=== PATIENT | male | born 1970 | race Caucasian/White ===

== ENCOUNTER 2021-01-23 13:26 | Outpatient (CLI) | payer OTHER, SELFPAY | END 2021-01-23 13:27 | disposition home or self-care (01) | LOC: WOUND 13:41 | PROVIDERS: PCP Emergency Medicine Emergency Medical Services; Visit Provider Emergency Medicine | DX: L89.893 Pressure ulcer of other site, stage 3 (principal); F17.210 Nicotine dependence, cigarettes, uncomplicated; I10 Essential (primary) hypertension | CPT/HCPCS: 11042; 87070; 87077; 87176; 87186; 87205; G0463 ==

== ENCOUNTER 2021-01-30 13:48 | Outpatient (CLI) | payer OTHER, SELFPAY | END 2021-01-30 13:49 | disposition home or self-care (01) | LOC: WOUND 13:49 | PROVIDERS: PCP Emergency Medicine Emergency Medical Services; Visit Provider Nurse Practitioner Family | DX: Z09 Encounter for follow-up examination after completed treatment for conditions other than malignant neoplasm (principal) | CPT/HCPCS: 99212; A6212 ==

== ENCOUNTER 2021-03-11 15:07 | Outpatient (CLI) | payer OTHER, SELFPAY ==
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
== END 2021-03-11 15:08 | disposition home or self-care (01) ==
LOC: RAD 15:08
PROVIDERS: PCP Emergency Medicine Emergency Medical Services; Visit Provider Emergency Medicine
DX: L89.893 Pressure ulcer of other site, stage 3 (principal); I87.2 Venous insufficiency (chronic) (peripheral)
CPT/HCPCS: 93971

== ENCOUNTER → 2021-06-09 08:07 | Outpatient (BNVA) | payer OTHER, SELFPAY | PROVIDERS: PCP Emergency Medicine Emergency Medical Services; Referring Provider Emergency Medicine Emergency Medical Services; Visit Provider Specialist | DX: M14.6 Charcot's joint (principal) | CPT/HCPCS: 73502 ==

== ENCOUNTER → 2021-07-10 14:09 | Outpatient (BNVA) | payer OTHER, SELFPAY | PROVIDERS: PCP Family Medicine; Referring Provider Specialist; Visit Provider Anesthesiology Pain Medicine | DX: M14.6 Charcot's joint (principal); M54.16 Radiculopathy, lumbar region; M87.052 Idiopathic aseptic necrosis of left femur; F17.210 Nicotine dependence, cigarettes, uncomplicated | CPT/HCPCS: 72110; 99204 ==

== ENCOUNTER → 2021-07-15 14:33 | Outpatient (BNVA) | payer OTHER, SELFPAY | PROVIDERS: PCP Family Medicine; Visit Provider Anesthesiology Pain Medicine | DX: M16.12 Unilateral primary osteoarthritis, left hip (principal); M54.9 Dorsalgia, unspecified; F17.210 Nicotine dependence, cigarettes, uncomplicated | CPT/HCPCS: 20610; 77002; J1030; J3490 ==

== ENCOUNTER → 2021-07-29 09:47 | Outpatient (BNVA) | payer OTHER, SELFPAY | PROVIDERS: PCP Family Medicine; Visit Provider Anesthesiology Pain Medicine | DX: M87.052 Idiopathic aseptic necrosis of left femur (principal); M14.6 Charcot's joint; F17.210 Nicotine dependence, cigarettes, uncomplicated | CPT/HCPCS: 99214 ==

== ENCOUNTER → 2021-07-31 10:01 | Outpatient (BNVA) | payer OTHER, SELFPAY | PROVIDERS: PCP Family Medicine; Referring Provider Specialist; Visit Provider Specialist | DX: G62.89 Other specified polyneuropathies (principal) | CPT/HCPCS: 95911 ==

== ENCOUNTER → 2021-09-02 12:55 | Outpatient (BNVA) | payer OTHER, SELFPAY | PROVIDERS: PCP Family Medicine; Visit Provider Anesthesiology Pain Medicine | DX: M16.12 Unilateral primary osteoarthritis, left hip (principal); F17.210 Nicotine dependence, cigarettes, uncomplicated | CPT/HCPCS: 20610; 77002; J1030; J3490 ==

== ENCOUNTER 2021-10-02 12:45 | Outpatient (CLI) | payer OTHER, SELFPAY ==
--- NOTE | 2021-10-02 13:58 | XRR_ITS ---
PROCEDURE INFORMATION: Exam: XR Right Hip Exam date and time: 10/02/2021 2:08 PM Age: 51 years old Clinical indication: Hip pain; Right hip; Additional info: M16.0 - bilateral primary osteoarthritis of hip TECHNIQUE: Imaging protocol: Radiologic exam of the Right hip. Views: 4 or more views of hip with pelvis when performed. COMPARISON: DX Pelvis AP 1 or 2 views* [id number] 01/20/2021 2:56 PM FINDINGS: Bones/joints: Incidentally noted is decreased size and remodeling in the left hip this finding is decreased in volume since prior examination . Soft tissues: Unremarkable. XR/XR hip RT 4V wo/w pel [id number] IMPRESSION: 1. Negative for acute right hip bony abnormality. 2. Chronic deformity left hip
== END 2021-10-02 12:46 | disposition home or self-care (01) ==
LOC: PMOACUTE 13:56
PROVIDERS: PCP Family Medicine; Visit Provider Anesthesiology Pain Medicine
DX: M14.6 Charcot's joint (principal); M87.052 Idiopathic aseptic necrosis of left femur; M54.9 Dorsalgia, unspecified; F17.210 Nicotine dependence, cigarettes, uncomplicated
CPT/HCPCS: 73503; 99214

== ENCOUNTER → 2021-10-30 13:57 | Outpatient (BNVA) | payer OTHER, SELFPAY | PROVIDERS: PCP Family Medicine; Visit Provider Anesthesiology Pain Medicine | DX: F17.210 Nicotine dependence, cigarettes, uncomplicated (principal); M14.6 Charcot's joint; M87.052 Idiopathic aseptic necrosis of left femur; M54.9 Dorsalgia, unspecified | CPT/HCPCS: 99213; 99214 ==

== ENCOUNTER → 2021-11-06 14:09 | Outpatient (BNVA) | payer OTHER, SELFPAY | PROVIDERS: PCP Family Medicine; Visit Provider Anesthesiology Pain Medicine | DX: M16.11 Unilateral primary osteoarthritis, right hip (principal); F17.210 Nicotine dependence, cigarettes, uncomplicated | CPT/HCPCS: 20610; 77002; J1030; J3490 ==

== ENCOUNTER → 2021-11-20 10:34 | Outpatient (BNVA) | payer OTHER, SELFPAY | PROVIDERS: PCP Family Medicine; Visit Provider Anesthesiology Pain Medicine | DX: M87.052 Idiopathic aseptic necrosis of left femur (principal); M14.6 Charcot's joint; M16.12 Unilateral primary osteoarthritis, left hip; F17.210 Nicotine dependence, cigarettes, uncomplicated | CPT/HCPCS: 99213 ==

== ENCOUNTER 2022-03-12 20:34 | Emergency (ER) | payer OTHER, SELFPAY ==
[2022-03-12 21:01] VITALS: BP 158/79; PULSE 88; RESP 16; TEMP 36.4; O2SAT 96; BMI 39.5
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
[2022-03-12] MEDS: ketorolac 60 mg/2 mL INJ IM (22:24)
[2022-03-12 23:01] VITALS: PULSE 84; RESP 16; O2SAT 94
== END 2022-03-12 23:02 | disposition home or self-care (01) ==
PROVIDERS: Emergency Provider Physician Assistant; PCP Family Medicine
DX: S60.222A Contusion of left hand, initial encounter (principal); F17.210 Nicotine dependence, cigarettes, uncomplicated; V86.69XA Passenger of other special all-terrain or other off-road motor vehicle injured in nontraffic accident, initial encounter
CPT/HCPCS: 73110; 73130; 96372; 99284; J1885

== ENCOUNTER 2022-08-01 12:51 | Emergency (ER) | payer OTHER, SELFPAY ==
--- NOTE | 2022-08-01 12:55 | XRR_ITS ---
PROCEDURE INFORMATION: Exam: XR Right Hip Exam date and time: 08/01/2022 1:14 PM Age: 51 years old Clinical indication: Hip pain; Right hip; Patient HX: Pain in hip with knee swelling; Additional info: Injury TECHNIQUE: Imaging protocol: Radiologic exam of the right hip. Views: 2 or 3 views hip with pelvis when performed. COMPARISON: CR XR hip RT 4V wo/w pel [id number] 10/02/2021 2:08 PM FINDINGS: Bones/joints: There is progressive deformity of the right femoral head which is more flattened on the current study. There are progressive degenerative changes of the right hip joint. Interval changes is suggestive of rapidly destructive arthritis of uncertain etiology. Changes are similar to findings in the left hip joint. There is no fracture or dislocation. Soft tissues: Unremarkable. XR/XR hip RT 2-3V wo/w pel* [id number] IMPRESSION: Destructive arthropathy right hip joint significantly progressed from previous exam similar to findings within the left hip joint.
[2022-08-01 13:00] VITALS: BP 149/87; PULSE 67; RESP 17; TEMP 36.8; O2SAT 93; BMI 31.6
--- NOTE | 2022-08-01 13:39 | USR_ITS ---
PROCEDURE INFORMATION: Exam: US Duplex Right Lower Extremity Veins, Limited Exam date and time: 08/01/2022 1:57 PM Age: 51 years old Clinical indication: Edema, localized; Lower extremity, right; Additional info: Rle edema TECHNIQUE: Imaging protocol: Real-time duplex ultrasound of the right extremity with 2-D jones scale, color Doppler flow and spectral waveform analysis including responses to compression and other maneuvers (when performed) with image documentation. Limited exam was focused on the right lower extremity veins. COMPARISON: No relevant prior studies available. FINDINGS: Right deep veins: Unremarkable. The common femoral, femoral, proximal profunda femoral and popliteal veins are patent without thrombus. Normal Doppler waveforms. Normal compressibility and/or augmentation response. Right superficial veins: Unremarkable. Saphenofemoral junction is patent without thrombus. Soft tissues: Unremarkable. US/[place] [id number] IMPRESSION: No evidence of deep vein thrombosis.
--- NOTE | 2022-08-01 13:57 | ED_ITS ---
HPI - Extremity Problem General: Chief complaint: Extremity Problem,Nontraumatic Stated complaint: right hip pain Time Seen by Provider: 08/01/22 13:03 History of Present Illness: Patient is a 51-year-old man that presents to the emergency department with complaints of right hip pain. Right hip pain is chronic in nature. Has undergone previous injections which has helped but has not recently been seen by his pain management provider or orthopedic surgeon. Patient has a history of bilateral hip avascular necrosis. He reports that he has also had right lower extremity swelling that he has been concerned about. The edema in the right lower extremity extends from calf through his thigh. Denies any actual calf pain. 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 Associated symptoms: Deny chest pain, fever(s) or rash Review of Systems General: Reports: 10 or more systems reviewed and unremarkable except in HPI and below Const: Denies: fever(s), chills, change in appetite, change in weight, fatigue or malaise Eyes: Denies: change in vision, eye discomfort, eye discharge or eye redness ENMT: Denies: throat pain, enlarged tonsils, odynophagia, hoarseness, ear or mastoid pain, ear discharge, change in hearing, tinnitus, nasal discharge, nasal congestion, post nasal drip or sinus pain Card: Denies: chest pain, palpitations, irregular heart rhythm, edema, dyspnea on exertion, orthopnea or leg pain with exertion Resp: Denies: dyspnea, productive cough, non-productive cough, wheezing, stridor or chest congestion GI: Denies: abdominal pain, nausea, vomiting, dysphagia, diarrhea, constipation, bloating, GI cramping or hematochezia : Denies: flank pain, dysuria, urinary frequency, urinary urgency, urinary hesitancy, oliguria or hematuria Musc: Denies: neck pain, back pain, extremity pain, joint pain, joint swelling, joint redness, joint warmth or muscle weakness Skin/Breast: Denies: rash, pruritus, erythema, photosensitivity or new lesions Neuro: Denies: headache(s), numbness in extremities, weakness in extremities, sensory changes, lack of coordination, difficulty walking, frequent falls, dizziness, confusion, Slurred speech present, difficulty communicating thoughts, seizure-like activity or involuntary movements Endo: Denies: polyuria, polydipsia or tired all the time Jarred/Lymph: Denies: easy bruising or easy bleeding PFSH ED PFSH: Medical History Bilateral foot-drop Venous insufficiency Family History Mother Hypertension Denies family history of Diabetes CAD (coronary artery disease) Cancer Stroke Social History Smoking and tobacco status: current every day smoker cigarettes Packs smoked per day: 1 Alcohol intake: current Alcohol intake frequency: holidays/special occasions only Alcohol type: beer Substance/Drug Use: former Date of last use: QUIT 2013 Physical Exam Narrative: EXAM NARRATIVE: Alert and oriented x3 Afebrile and vital signs are stable [place] warm and dry Nonlabored breathing Symmetrical chest rise and fall Obesity bilateral lower extremities: Patient has bilateral AFOs. RHONDA hose-below the knee Swelling is noted to the right lower extremity. Patient denies calf pain and is nontender to palpation Patient does have knee swelling but is still able to range of motion his knee There is no erythema or warmth to the knee Course Vital Signs: Vital signs: Vital Signs Temperature 98.3 F 08/01/22 13:00 Pulse Rate 67 08/01/22 13:00 Respiratory Rate 17 08/01/22 13:00 Blood Pressure 140/71 08/01/22 14:17 Pulse Oximetry 95 08/01/22 14:17 Oxygen Delivery Me thod Room Air 08/01/22 14:17 MDM - Extremity (Nontraumatic) Medical Decision Making Patient underwent XR imaging of the right hip/pelvis. Imaging reveals evolution of right hip avascular necrosis. Patient is also concerned of right lower extremity edema. I have obtained a ultrasound venous duplex of the right lower extremity to assess for DVT negative for DVT. Patient was treated with Toradol and reports that he has had some improvement in his symptoms although when ambulatory his pain is pretty significant. Patient does already have established orthopedic and pain management cares and he has a primary care provider Prior to departure patient has requested numerous orders including a wheelchair, bedside commode, wound care management, etc. I have consulted case management for mobility needs and for wound care. Patient is also requesting RHONDA hose. I have sent a prescription for RHONDA hose and Toradol. Patient is to follow-up with [facility] provider, [facility], [facility] management, orthopedic surgeon Lab Data Radiology Impressions Hip/Pelvis X-Ray 08/01/22 12:55 IMPRESSION: Destructive arthropathy right hip joint significantly progressed from previous exam similar to findings within the left hip joint. Venous Duplex 08/01/22 13:39 IMPRESSION: No evidence of deep vein thrombosis. Discharge Plan Discharge Patient Disposition: Home Clinical Impression: Avascular necrosis, Edema of lower extremity Condition: Stable Prescriptions: New ketorolac 10 mg tablet 10 mg PO TID PRN (Reason: pain) 5 Days Qty: 15 0RF No Action losartan 50 mg tablet 150 mg PO DAILY amlodipine 5 mg tablet 5 mg PO DAILY buprenorphine-naloxone 2-0.5 mg tablet, sublingual 2 tab sublingual BID omega-3 fatty acids [Fish Oil Concentrate] 1,000 mg capsule 1,000 mg PO BID metoprolol succinate 100 mg tablet extended release 24 hr 150 mg PO DAILY pregabalin 75 mg capsule 75 mg PO BID hydrochlorothiazide 25 mg tablet 25 mg PO DAILY methylprednisolone acetate [Depo-Medrol] 40 mg/mL suspension 40 mg intra-articular ONCE Qty: 1 0RF bupivacaine (PF) 0.25 % (2.5 mg/mL) solution 5 ml intra-articular ONCE Qty: 1 0RF methylprednisolone acetate [Depo-Medrol] 40 mg/mL suspension 40 mg Infiltration ONCE Qty: 1 0RF bupivacaine (PF) 0.25 % (2.5 mg/mL) solution 2.5 mg intra-articular ONCE Qty: 1 0RF ibuprofen 800 mg tablet 800 mg PO Q8H PRN (Reason: pain) Qty: 20 0RF Discharge Orders: Discharge ED (Routine); Ordered 08/01/22 Ordered By: [facility]ell [facility] Referrals: Es Torres MD [Primary Care Provider] - Discharge Diet: Advance as tolerated Discharge Activity: Resume usual activity Patient Instructions: Pain Management Activity Restrictions/Additional Instructions: Please follow-up with your primary care, orthopedic surgeon, painter assistant. I have sent consults for comp field case manager to assist with setting up assistance with home health care needs. Unfortunately I am unable to provide you with RHONDA hose/compression stockings. I have sent to prescription for ketorolac which is like ibuprofen so do not take additional ibuprofen or Advil while taking this. Please return to the emergency department for new concerning or worsening symptom Coding Level of Care Code ED School Traffic Guard for Zelalem Sumner
[2022-08-01] MEDS: ketorolac 60 mg/2 mL INJ IM (14:11)
[2022-08-01 14:17] VITALS: BP 140/71; O2SAT 95
[2022-08-01 15:32] VITALS: BP 138/71; RESP 16; O2SAT 98
--- NOTE | 2022-08-02 04:42 | DCPLANNER ---
nurse care manager had message to schedule a follow up appointment for patient with Wound Care. nurse care manager sent patients information to the front office staff at wound care. Patients information will be printed and reviewed. Clinic will call patient with appointment information.
--- NOTE | 2022-08-02 09:08 | DCPLANNER ---
onsite case manager had message to help patient with home health needs, wheelchair, shower chair, bedside commode. onsite case manager spoke with patient and informed the patient that with [facility], patient would need to go thru his primary care physician, and the [facility]. onsite case manager did tell patient that shelter case manager would send patients records to the [facility], so that they would know what the ER physician wanted ordered for patient. Patient stated that he would call his PACT team to get the items that he wanted ordered. onsite case manager sent patients information to June, with [facility].
== END 2022-08-01 15:35 | disposition home or self-care (01) ==
PROVIDERS: Emergency Provider Nurse Practitioner; PCP Family Medicine
DX: M87.9 Osteonecrosis, unspecified (principal); R60.0 Localized edema
CPT/HCPCS: 73502; 93971; 96372; 99284; J1885

== ENCOUNTER 2022-08-17 13:11 | Emergency (ER) | payer OTHER, SELFPAY ==
[2022-08-17 13:26] VITALS: BP 149/78; PULSE 73; RESP 14; TEMP 36.6; O2SAT 96; BMI 39.5
--- NOTE | 2022-08-17 16:29 | W.ED.EXTPRO ---
HPI - Extremity Problem General: Chief complaint: Extremity Injury, Lower Stated complaint: leg swelling Time Seen by Provider: 08/17/22 16:05 Source: patient Mode of arrival: wheelchair Limitations: no limitations History of Present Illness: This 51-year-old male with a history of bilateral avascular necrosis of the hips presents to the ER with right hip pain. Pain is chronic and he sees the pain clinic for it. He has had injections to the hip which provides temporary relief. Review of records shows that patient was here on 08/01/2022 for the same pain. He had associated swelling in the right leg. Venous Doppler ultrasound done at that time was negative for DVT. Patient was essentially treated for pain and discharged home. She still complains of swelling to that right lower extremity and this time is wanting to make sure that there is no infection there. He has no fever, cough, shortness of breath or any signs of systemic illness. He came in in a wheelchair. Associated symptoms: Deny chest pain Review of Systems Const: Denies: chills, body aches or change in appetite Eyes: Denies: change in vision or eye discharge ENMT: Denies: throat pain or dental pain Card: Denies: chest pain or lightheadedness GI: Denies: diarrhea : Denies: dysuria Musc: Reports: neck pain, back pain, extremity swelling (Both legs, right worse than left.), joint pain (Bilateral hip, right worse than left.) and limited range of motion (Right hip, due to pain.) Neuro: Denies: headache(s) or weakness in extremities Psych: Denies: depression Jarred/Lymph: Denies: easy bruising All/Imm: Denies: urticaria, tongue swelling or facial swelling PFSH ED PFSH: Medical History Bilateral foot-drop Venous insufficiency Family History Mother Hypertension Denies family history of Diabetes CAD (coronary artery disease) Cancer Stroke Social History Smoking and tobacco status: current every day smoker cigarettes Packs smoked per day: 1 Alcohol intake: current Alcohol intake frequency: holidays/special occasions only Alcohol type: beer Substance/Drug Use: former Date of last use: QUIT 2013 Physical Exam Const: COMMON NORMALS: no acute distress, patient oriented x3, no limitations and alert NUTRITIONAL APPEARANCE: overweight (Obese) HENMT: COMMON NORMALS: normocephalic HEAD & SCALP: normocephalic Eye: COMMON NORMALS: EOMs intact bilaterally Neck/C-Spine: COMMON NORMALS: full ROM and supple Chest: COMMONS NORMALS: normal inspection of the chest Resp: COMMON NORMALS: normal respiratory effort, No retractions, No use of accessory muscles and clear to auscultation bilaterally AUSCULTATION: clear to auscultation bilaterally Cardio: COMMON NORMALS: regular rate, regular rhythm and No murmurs present (Cardio) RATE: regular rate RHYTHM: regular rhythm GI: COMMON NORMALS: Normal to inspection, nondistended, normoactive bowel sounds present and non-tender : COMMON NORMALS: Yes no CVA tenderness BLADDER/KIDNEY EXAM: Yes no CVA tenderness Back/Pelvis: COMMON NORMALS: no CVA tenderness and no thoracic nor lumbar tenderness Extremity: GENERAL: Yes normal exam except as noted OTHER: Limitation of right hip movement due to pain. There is bilateral pitting pedal edema, right worse than left. No distal neurovascular deficit. Homans' sign is negative in the right lower extremity. Neuro: COMMON NORMALS: patient oriented x3 and no focal motor deficits SENSORIUM/ORIENTATION: Yes alert Psych: COMMON NORMALS: mental status grossly normal and cooperative Course Vital Signs: Vital signs: Vital Signs Temperature 97.9 F 08/17/22 13:26 Pulse Rate 63 08/17/22 17:43 Respiratory Rate 16 08/17/22 17:43 Blood Pressure 137/97 08/17/22 17:43 Pulse Oximetry 99 08/17/22 17:43 Oxygen Delivery Me thod Room Air 08/17/22 17:43 MDM - Extremity (Nontraumatic) Medical Decision Making Medical decision making: History as above. There is nothing to suggest that patient has infection in the right lower extremity. There is no erythema or warmth in that leg. White count is normal with no left shift. Patient is afebrile and exhibits no signs of systemic illness. Venous Doppler ultrasound done in that right lower extremity during his last visit was negative for DVT. There is nothing to suggest DVT at this time. I believe that the edema is dependent since patient mostly utilizes wheelchair these days. He was advised to elevate the leg is much as possible. Also to help, he will be given a short course of Lasix. He will be evaluated by his primary care physician in a week to determine if he needs to continue with the Lasix or not. Reasons to return were discussed. Patient verbalized understanding and agrees with the plan. Lab Data 08/17/22 17:30 08/17/22 17:30 Laboratory Results WBC 7.7 10^3/uL (4.0-10.0) 08/17/22 17: RBC 4.12 10^6/uL (4.1-5.3) 08/17/22 17: Hgb 11.6 g/dL (11.7-16.6) L 08/17/22 17: Hct 37.4 % (42.0-52.0) L 08/17/22 17: MCV 90.8 fl (80-94) 08/17/22 17: MCH 28.2 pg (28.0-34.0) 08/17/22 17: MCHC 31.0 g/dL (30.0-36.0) 08/17/22 17: RDW 14.9 % (12.1-15.1) 08/17/22 17: Plt Count 257 10^3/cmm (130-400) 08/17/22 17: MPV 10.7 fL (7.4-10.4) H 08/17/22 17:30 Neut % (Auto) 57.0 % 08/17/22 17:30 Lymph % (Auto) 28.6 % 08/17/22 17:30 [place] % (Auto) 8.5 % 08/17/22 17:30 Eos % (Auto) 5.3 % 08/17/22 17:30 Baso % (Auto) 0.5 % 08/17/22 17:30 Neut # (Auto) 4.37 10^3/uL (1.8-7.7) 08/17/22 17:30 Lymph # (Auto) 2.2 10^3/uL (0.8-4.8) 08/17/22 17:30 [place] # (Auto) 0.7 10^3/uL (0.2-0.9) 08/17/22 17:30 Eos # (Auto) 0.4 10^3/uL (0.0-0.8) 08/17/22 17:30 Baso # (Auto) 0.0 10^3/uL (0.0-0.1) 08/17/22 17:30 Nucleated RBC % (auto) 0 % 08/17/22 17:30 Nucleated RBCs # 0.0 /100WBC 08/17/22 17:30 Sodium 140 mmol/L (136-145) 08/17/22 17:30 Potassium 3.5 mmol/L (3.5-5.1) 08/17/22 17:30 Chloride 102 mmol/L (98-107) 08/17/22 17:30 Carbon Dioxide 27 mmol/L (22-29) 08/17/22 17:30 Anion Gap 14.5 (5-19) 08/17/22 17:30 BUN 12 mg/dL (6-20) 08/17/22 17:30 Creatinine 0.8 mg/dL (0.7-1.2) 08/17/22 17:30 GFR Calculation 101.5 mL/min (90-130) 08/17/22 17:30 Glucose 80 mg/dL (65-115) 08/17/22 17:30 Calculated Osmolality 289 mOsm/kg (285-295) 08/17/22 17:30 Calcium 8.8 mg/dL (8.5-10.5) 08/17/22 17:30 Total Bilirubin 0.2 mg/dL (0.15-1.2) 08/17/22 17:30 AST 15 U/L (0-40) 08/17/22 17:30 ALT 12 U/L (0-41) 08/17/22 17:30 Alkaline Phosphatase 65 U/L (40-130) 08/17/22 17:30 Total Protein 7.7 g/dL (6.6-8.7) 08/17/22 17:30 Albumin 3.7 g/dL (3.5-5.2) 08/17/22 17:30 Globulin 4.0 g/dL (1.3-4.6) 08/17/22 17:30 Discharge Plan Discharge Patient Disposition: Home Clinical Impression: Chronic hip pain, bilateral, Edema of right lower extremity Condition: Stable Prescriptions: New Lasix 20 mg tablet 20 mg PO DAILY Qty: 7 0RF No Action losartan 50 mg tablet 150 mg PO DAILY amlodipine 5 mg tablet 5 mg PO DAILY buprenorphine-naloxone 2-0.5 mg tablet, sublingual 2 tab sublingual BID omega-3 fatty acids [Fish Oil Concentrate] 1,000 mg capsule 1,000 mg PO BID metoprolol succinate 100 mg tablet extended release 24 hr 150 mg PO DAILY pregabalin 75 mg capsule 75 mg PO BID hydrochlorothiazide 25 mg tablet 25 mg PO DAILY methylprednisolone acetate [Depo-Medrol] 40 mg/mL suspension 40 mg intra-articular ONCE Qty: 1 0RF bupivacaine (PF) 0.25 % (2.5 mg/mL) solution 5 ml intra-articular ONCE Qty: 1 0RF methylprednisolone acetate [Depo-Medrol] 40 mg/mL suspension 40 mg Infiltration ONCE Qty: 1 0RF bupivacaine (PF) 0.25 % (2.5 mg/mL) solution 2.5 mg intra-articular ONCE Qty: 1 0RF ibuprofen 800 mg tablet 800 mg PO Q8H PRN (Reason: pain) Qty: 20 0RF Discharge Orders: Discharge ED (Routine); Ordered 08/17/22 Ordered By: Anabell Porras Referrals: Es Torres MD [Primary Care Provider] - Discharge Diet: Usual diet Discharge Activity: Resume usual activity Patient Instructions: Opioid Safety, Pain Management Activity Restrictions/Additional Instructions: There is no sign of infection in your right leg. Take Lasix as prescribed. Elevate your lower extremities as much as you can. Follow-up with your primary care physician in a week for reevaluation. Follow-up with the pain clinic as scheduled. Return with new or worsening symptoms. Coding Level of Care Code ED Manager Environmental for Zelalem Sumner
[2022-08-17 17:41] VITALS: BP 180/94; PULSE 70; RESP 15; O2SAT 94
[2022-08-17 17:41] LABS: Basophils % 0.5 %; Eosinophils # 0.4 10^3/uL (0.0-0.8); Eosinophils % 5.3 %; Hematocrit 37.4 % (42.0-52.0); Hemoglobin 11.6 g/dL (11.7-16.6); Lymphocytes # 2.2 10^3/uL (0.8-4.8); Lymphocytes % 28.6 %; Mean Corpuscular Hemoglobin 28.2 pg (28.0-34.0); Mean Corpuscular Volume 90.8 fl (80-94); Mean Platelet Volume 10.7 fL (7.4-10.4); Monocytes # 0.7 10^3/uL (0.2-0.9); Monocytes % 8.5 %; Neutrophils # 4.37 10^3/uL (1.8-7.7); Nucleated Red Blood Cells % 0 %; Platelet Count 257 10^3/cmm (130-400); Red Blood Count 4.12 10^6/uL (4.1-5.3); Red Cell Distribution Width 14.9 % (12.1-15.1); White Blood Count 7.7 10^3/uL (4.0-10.0)
[2022-08-17 17:43] VITALS: BP 137/97; PULSE 63; RESP 16; O2SAT 99
[2022-08-17 18:02] LABS: Alanine Aminotransferase 12 U/L (0-41); Albumin Level 3.7 g/dL (3.5-5.2); Alkaline Phosphatase 65 U/L (40-130); Anion Gap 14.5 (5-19); Aspartate Amino Transferase 15 U/L (0-40); Blood Urea Nitrogen 12 mg/dL (6-20); Calcium 8.8 mg/dL (8.5-10.5); Carbon Dioxide 27 mmol/L (22-29); Chloride 102 mmol/L (98-107); Glomerular Filtration Rate 101.5 mL/min (90-130); Glucose 80 mg/dL (65-115); Osmolality Calculated 289 mOsm/kg (285-295); Potassium 3.5 mmol/L (3.5-5.1); Sodium 140 mmol/L (136-145); Total Bilirubin 0.2 mg/dL (0.15-1.2); Total Protein 7.7 g/dL (6.6-8.7)
== END 2022-08-17 19:15 | disposition home or self-care (01) ==
PROVIDERS: Emergency Provider Family Medicine; PCP Family Medicine
DX: M25.551 Pain in right hip (principal); M25.552 Pain in left hip; G89.29 Other chronic pain; M79.89 Other specified soft tissue disorders
CPT/HCPCS: 36415; 80053; 85025; 99283

== ENCOUNTER → 2022-08-25 13:14 | Outpatient (BNVA) | payer OTHER, SELFPAY | PROVIDERS: PCP Family Medicine; Visit Provider Nurse Practitioner Family | DX: I96 Gangrene, not elsewhere classified (principal); L97.822 Non-pressure chronic ulcer of other part of left lower leg with fat layer exposed; L97.512 Non-pressure chronic ulcer of other part of right foot with fat layer exposed; L97.522 Non-pressure chronic ulcer of other part of left foot with fat layer exposed | CPT/HCPCS: 97597; 99213 ==

== ENCOUNTER → 2022-09-01 12:51 | Outpatient (BNVA) | payer OTHER, SELFPAY | PROVIDERS: PCP Family Medicine; Visit Provider Nurse Practitioner Family | DX: I96 Gangrene, not elsewhere classified (principal); L97.522 Non-pressure chronic ulcer of other part of left foot with fat layer exposed; L97.822 Non-pressure chronic ulcer of other part of left lower leg with fat layer exposed; L97.512 Non-pressure chronic ulcer of other part of right foot with fat layer exposed; Z09 Encounter for follow-up examination after completed treatment for conditions other than malignant neoplasm | CPT/HCPCS: 11042; 97597; A6219 ==

== ENCOUNTER 2022-09-02 13:03 | Outpatient (CLI) | payer OTHER, SELFPAY ==
--- NOTE | 2022-09-02 13:00 | USCV_ITS ---
Tristen Gunter Age: 51 Gender: M : 1970 Exam Date: 09/02/2022 13:24 Ordering Phys: Madelin Du NP Technologist: Jamarcus Da Silva Exam Location: [facility] – [place] Indication: HISTORY: PROCEDURES: FINDINGS: There is no evidence of bilateral deep vein thrombosis. No evidence of superficial thrombosis in the bilateral saphenous system. No evidence of reflux was noted in the bilateral deep venous system. No venous reflux noted in the bilateral greater saphenous vein. No venous reflux noted in the bilateral small saphenous vein. The veins were found to be easily compressible with spontaneous blood flow. Non pulsatile flow pattern. CONCLUSIONS No evidence of DVT in the above-mentioned identifiable veins. No significant reflux was noted either in the superficial or deep veins bilaterally. Normal caliber patent veins bilaterally Dr Batool Meier MD [facility] (Electronically Signed) Final Date: 10 September 2022 17:39 S
== END 2022-09-02 13:04 | disposition home or self-care (01) ==
LOC: RAD 13:04
PROVIDERS: PCP Family Medicine; Visit Provider Nurse Practitioner Family
DX: L97.529 Non-pressure chronic ulcer of other part of left foot with unspecified severity (principal); L97.519 Non-pressure chronic ulcer of other part of right foot with unspecified severity; M14.6 Charcot's joint; M87.052 Idiopathic aseptic necrosis of left femur; M25.552 Pain in left hip; M54.9 Dorsalgia, unspecified
CPT/HCPCS: 93970; 99213

== ENCOUNTER → 2022-09-08 12:57 | Outpatient (BNVA) | payer OTHER, SELFPAY | PROVIDERS: PCP Family Medicine; Visit Provider Nurse Practitioner Family | DX: I96 Gangrene, not elsewhere classified (principal); L97.512 Non-pressure chronic ulcer of other part of right foot with fat layer exposed; L97.522 Non-pressure chronic ulcer of other part of left foot with fat layer exposed; L97.822 Non-pressure chronic ulcer of other part of left lower leg with fat layer exposed; L60.8 Other nail disorders; L60.3 Nail dystrophy; L97.519 Non-pressure chronic ulcer of other part of right foot with unspecified severity; G62.9 Polyneuropathy, unspecified; M21.371 Foot drop, right foot; M21.372 Foot drop, left foot | CPT/HCPCS: 11721; 97597; 99204 ==

== ENCOUNTER 2022-09-18 14:55 | Outpatient (CLI) | payer OTHER, SELFPAY ==
--- NOTE | 2022-09-18 15:03 | USR_ITS ---
PROCEDURE INFORMATION: Exam: US Duplex Bilateral Lower Extremity Arteries Exam date and time: 09/18/2022 3:21 PM Age: 51 years old Clinical indication: Condition or disease; Other: Non healing ulcers; Additional info: Non-pressure chronic ulcer of skin of other sites TECHNIQUE: Imaging protocol: Real-time ultrasound scan of the arteries of the bilateral lower extremities with 2-D jones scale, color Doppler flow and spectral waveform analysis. Images documented and saved. COMPARISON: No relevant prior studies available. FINDINGS: Right common femoral artery: No occlusion or significant stenosis. Normal waveform. Right superficial femoral artery: No occlusion or significant stenosis. Normal waveform. Right popliteal artery: No occlusion or significant stenosis. Normal waveform. Right calf/foot arteries: No occlusion or significant stenosis in the visualized arteries. Normal waveforms. Dorsalis pedis artery is patent. Left common femoral artery: No occlusion or significant stenosis. Normal waveform. Left superficial femoral artery: No occlusion or significant stenosis. Normal waveform. Left popliteal artery: No occlusion or significant stenosis. Normal waveform. Left calf/foot arteries: No occlusion or significant stenosis in the visualized arteries. Normal waveforms. Dorsalis pedis artery is patent. US/CV arterial duplex [facility] [id number] IMPRESSION: No stenosis or occlusion.
== END 2022-09-18 14:56 | disposition home or self-care (01) ==
LOC: RAD 14:56
PROVIDERS: PCP Family Medicine; Visit Provider Nurse Practitioner Family
DX: L98.499 Non-pressure chronic ulcer of skin of other sites with unspecified severity (principal); G62.9 Polyneuropathy, unspecified
CPT/HCPCS: 93925

== ENCOUNTER → 2022-09-29 12:55 | Outpatient (BNVA) | payer OTHER, SELFPAY | PROVIDERS: PCP Family Medicine; Visit Provider Nurse Practitioner Family | DX: L97.822 Non-pressure chronic ulcer of other part of left lower leg with fat layer exposed (principal); L97.522 Non-pressure chronic ulcer of other part of left foot with fat layer exposed; L97.512 Non-pressure chronic ulcer of other part of right foot with fat layer exposed; Z09 Encounter for follow-up examination after completed treatment for conditions other than malignant neoplasm | CPT/HCPCS: 97597; A6219 ==

== ENCOUNTER → 2022-10-06 12:59 | Outpatient (BNVA) | payer OTHER, SELFPAY | PROVIDERS: PCP Family Medicine; Visit Provider Nurse Practitioner Family | DX: I96 Gangrene, not elsewhere classified (principal); L97.512 Non-pressure chronic ulcer of other part of right foot with fat layer exposed; L89.893 Pressure ulcer of other site, stage 3; Z09 Encounter for follow-up examination after completed treatment for conditions other than malignant neoplasm | CPT/HCPCS: 97597 ==

== ENCOUNTER → 2022-10-15 08:33 | Outpatient (BNVA) | payer OTHER, SELFPAY | PROVIDERS: PCP Family Medicine; Visit Provider Nurse Practitioner Family | DX: I96 Gangrene, not elsewhere classified (principal); L89.893 Pressure ulcer of other site, stage 3; L97.512 Non-pressure chronic ulcer of other part of right foot with fat layer exposed | CPT/HCPCS: 97597; A6219 ==

== ENCOUNTER → 2022-11-10 12:38 | Outpatient (BNVA) | payer OTHER, SELFPAY | PROVIDERS: PCP Family Medicine; Visit Provider Podiatrist Foot & Ankle Surgery | DX: L60.8 Other nail disorders (principal); G62.9 Polyneuropathy, unspecified; M21.371 Foot drop, right foot; M21.372 Foot drop, left foot | CPT/HCPCS: 99214 ==

== ENCOUNTER → 2023-02-08 11:16 | Outpatient (BNVA) | payer OTHER, SELFPAY | PROVIDERS: PCP Family Medicine; Visit Provider Podiatrist Foot & Ankle Surgery | DX: L97.512 Non-pressure chronic ulcer of other part of right foot with fat layer exposed (principal); G62.9 Polyneuropathy, unspecified; M21.371 Foot drop, right foot; M21.372 Foot drop, left foot; I89.0 Lymphedema, not elsewhere classified; M21.41 Flat foot [pes planus] (acquired), right foot; M21.42 Flat foot [pes planus] (acquired), left foot | CPT/HCPCS: 99214 ==

== ENCOUNTER 2023-02-20 18:24 | Emergency (ER) | payer OTHER, SELFPAY ==
[2023-02-20 18:41] VITALS: BP 146/84; PULSE 90; RESP 18; TEMP 36.8; O2SAT 98
--- NOTE | 2023-02-20 19:07 | XRR_ITS ---
PROCEDURE INFORMATION: Exam: XR Right Foot Exam date and time: 02/20/2023 7:27 PM Age: 52 years old Clinical indication: Pain; Right; Patient HX: Ulceric RT foot TECHNIQUE: Imaging protocol: Radiologic exam of the right foot. Views: 3 or more views. COMPARISON: No relevant prior studies available. FINDINGS: Bones/joints: Normal. Soft tissues: Prominent soft tissue swelling over the forefoot consistent with cellulitis. No obvious radiographic soft tissue ulcer or soft tissue emphysema. XR/XR foot RT min 3V* [id number] IMPRESSION: 1. Prominent soft tissue swelling over the forefoot consistent with cellulitis. 2. No obvious radiographic soft tissue ulcer or soft tissue emphysema.
--- NOTE | 2023-02-20 19:07 | W.ED.WOUNDLC ---
HPI - Wound/Laceration General: Chief Complaint: Wound/Laceration Stated Complaint: Ulcers on Toes\Fever Time Seen by Provider: 02/20/23 18:48 Source: patient Mode of arrival: ambulatory Limitations: no limitations History of Present Illness: Patient is a nice 52-year-old male who presents to ED today with a complaint of wounds/ulcers to the webbing of his right foot. Patient states he has a longstanding history of bilateral foot wounds. He states he has a history of severe bilateral lower extremity neuropathy. Patient was routinely seen in our wound care clinic however states over the past few months he has had bilateral hip replacements that have prevented him from going to wound care. Looking at previous documentation looks like he has not seen wound care since October. He has however seen his patternmaker plaster Dr. Beltran just a few weeks ago. He states since that visit he has developed new wounds to the webbing of his right foot. He has noticed some drainage but no foul odor. Contrary to triage report patient states he has not been running fevers. He arrives to the ED with stable vital signs. He does have upcoming [facility] wound care appointment scheduled for this . Onset (ago): day(s) Extremity Location: Bilateral: foot Patient tetanus UTD: Yes Associated symptoms: Reports no associated symptoms; Denies chills or fever(s) Review of Systems Const: Denies: fever(s), chills, body aches, fatigue or malaise Card: Denies: chest pain Resp: Denies: dyspnea Musc: Denies: extremity pain Skin/Breast: Reports: other (R toe wounds) Neuro: Reports: other (chronic bilateral LE peripheral neuropathy) [facility] ED PFSH: Medical History Bilateral foot-drop Venous insufficiency Family History Mother Hypertension Denies family history of Diabetes CAD (coronary artery disease) Cancer Stroke Social History Smoking and tobacco/nicotine status: current every day tobacco/nicotine user cigarettes Packs smoked per day: 1 Alcohol intake: current Alcohol intake frequency: holidays/special occasions only Alcohol type: beer Substance/Drug Use: former Date of last use: 2013 Physical Exam Const: COMMON NORMALS: no acute distress, patient oriented x3, no limitations, alert and well nourished GENERAL APPEARANCE: cooperative Resp: COMMON NORMALS: normal respiratory effort and clear to auscultation bilaterally AUSCULTATION: clear to auscultation bilaterally Cardio: COMMON NORMALS: regular rate and regular rhythm RATE: regular rate RHYTHM: regular rhythm Extremity: RIGHT LOWER EXTREMITY: Yes foot & digits LEFT LOWER EXTREMITY: Yes foot & digits OTHER: Patient with edema affecting right lower extremity as well as erythema to dorsal right foot that he states is chronic. Right foot is warm. There are ulcers/wounds between all webbings of toes-one with some scant non-odorous clear drainage. No lymphangitic streaking present. Left foot is cool to the touch (states this is normal) but has doppler found DP/PT pulses. Neuro: COMMON NORMALS: patient oriented x3 SENSORIUM/ORIENTATION: Yes alert OTHER: chronic sensory deficits to bilateral LEs Course Vital Signs: Vital signs: Vital Signs Temperature 98.2 F 02/20/23 18:41 Pulse Rate 71 02/20/23 21:05 Respiratory Rate 18 02/20/23 18:41 Blood Pressure 146/84 02/20/23 18:41 Pulse Oximetry 100 02/20/23 21:05 Oxygen Delivery Me thod Room Air 02/20/23 21:05 MDM - Wound/Laceration Medical Decision Making Patient here with acute on chronic ulcers to the webbing of his right foot. He states he has a longstanding history of ulcers but at one point they were almost completely healed. Patient states he has not recently seen wound care as he has had bilateral hips replaced over the past several months. Patient is not febrile or tachycardic. His white count is 11.8. Foot XR without concerns for osteomyelitis or gas formation. Patient has multiple ulcers/wounds to the webbing of all digits on his right foot some with nonodorous drainage. He has no lymphangitic streaking. Right foot appears cellulitic however patient states this is his baseline and foot is always erythematous, swollen, and warm. Inflammatory markers are starkly elevated. Patient states he does not want to be admitted to the hospital. He was given a dose of IV Vanco and Zosyn prior to discharge. Will place him on clindamycin. He will follow-up with wound care on as scheduled. Strict return ED precautions given. Lab Data 02/20/23 19:27 02/20/23 19: Radiology Impressions Foot X-Ray 02/20/23: IMPRESSION: 1. Prominent soft tissue swelling over the forefoot consistent with cellulitis. 2. No obvious radiographic soft tissue ulcer or soft tissue emphysema. Laboratory Results WBC 11.88 10^3/uL (3.29-11.43) H 02/20/23: RBC 4.54 10^6/uL (3.85-5.65) 02/20/23 19: Hgb 12.60 g/dL (11.27-16.99) 02/20/23: Hct 38.6 % (37-53) 02/20/23: MCV 85.0 fl (82-101) 02/20/23: MCH 27.8 pg (27-33) 02/20/23: MCHC 32.6 g/dL (30-55) 02/20/23: RDW 14.8 % (12.1-15.1) 02/20/23: Plt Count 286 10^3/cmm (157-399) 02/20/23: MPV 11.1 fL (7.4-10.4) H 02/20/23: Neut % (Auto) 79.7 % 02/20/23: Lymph % (Auto) 11.8 % 02/20/23: [place] % (Auto) 6.3 % 02/20/23: Eos % (Auto) 1.6 % 02/20/23: Baso % (Auto) 0.3 % 02/20/23: Neut # (Auto) 9.48 10^3/uL (1.8-7.7) H 02/20/23: Lymph # (Auto) 1.4 10^3/uL (0.8-4.8) 02/20/23: [place] # (Auto) 0.8 10^3/uL (0.2-0.9) 02/20/23 19: Eos # (Auto) 0.2 10^3/uL (0.0-0.8) 02/20/23:27 Baso # (Auto) 0.0 10^3/uL (0.0-0.1) 02/20/23 19:27 Nucleated RBC % (auto) 0 % 02/20/23 19:27 Nucleated RBCs # 0.0 /100WBC 02/20/23 19:27 ESR 71 mm/hr (0-10) H 02/20/23 19:27 Sodium 135 mmol/L (136-145) L 02/20/23 19:27 Potassium 3.0 mmol/L (3.5-5.1) L 02/20/23 19:27 Chloride 96 mmol/L (98-107) L 02/20/23 19:27 Carbon Dioxide 26 mmol/L (22-29) 02/20/23 19:27 Anion Gap 16.0 (5-19) 02/20/23 19:27 BUN 15 mg/dL (6-20) 02/20/23 19:27 Creatinine 0.8 mg/dL (0.7-1.2) 02/20/23 19:27 GFR Calculation 101.1 mL/min (90-130) 02/20/23 19:27 Glucose 137 mg/dL (65-115) H 02/20/23 19:27 Calculated Osmolality 283 mOsm/kg (285-295) L 02/20/23 19:27 Calcium 8.9 mg/dL (8.5-10.5) 02/20/23 19:27 Total Bilirubin 0.5 mg/dL (0.15-1.2) 02/20/23 19:27 AST 14 U/L (0-40) 02/20/23 19:27 ALT 11 U/L (0-41) 02/20/23 19:27 Alkaline Phosphatase 90 U/L (40-130) 02/20/23 19:27 C-Reactive Protein 107.6 mg/L (0.0-4.9) H 02/20/23 19:27 Total Protein 7.8 g/dL (6.6-8.7) 02/20/23 19:27 Albumin 4.0 g/dL (3.5-5.2) 02/20/23 19:27 Globulin 3.8 g/dL (1.3-4.6) 02/20/23 19:27 All radiology interpretation(s) finalized by discharge Discharge Plan Discharge Patient Disposition: Home Clinical Impression: Ulcer of right foot Qualifiers: Non-pressure ulcer stage: unspecified non-pressure ulcer stage Qualified Code(s): L97.519 - Non-pressure chronic ulcer of other part of right foot with unspecified severity Condition: Stable Prescriptions: New clindamycin HCl 300 mg capsule 300 mg PO Q6H 7 Days Qty: 28 0RF No Action losartan 50 mg tablet 150 mg PO DAILY amlodipine 5 mg tablet 5 mg PO DAILY buprenorphine-naloxone 2-0.5 mg tablet, sublingual 2 tab sublingual BID omega-3 fatty acids [Fish Oil Concentrate] 1,000 mg capsule 1,000 mg PO BID metoprolol succinate 100 mg tablet extended release 24 hr 150 mg PO DAILY cephalexin 500 mg capsule 500 mg PO BID Qty: 14 0RF (DME) Extra depth orthopedic shoes See Rx Instructions .Route .MEDSUPPLY Qty: 1 0RF Rx Instructions: As directed (DME) JUZOS wraps bilaterally See Rx Instructions .Route .MEDSUPPLY Qty: 1 0RF Rx Instructions: As directed pregabalin 75 mg capsule 75 mg PO BID hydrochlorothiazide 25 mg tablet 25 mg PO DAILY methylprednisolone acetate [Depo-Medrol] 40 mg/mL suspension 40 mg intra-articular ONCE Qty: 1 0RF bupivacaine (PF) 0.25 % (2.5 mg/mL) solution 5 ml intra-articular ONCE Qty: 1 0RF methylprednisolone acetate [Depo-Medrol] 40 mg/mL suspension 40 mg Infiltration ONCE Qty: 1 0RF bupivacaine (PF) 0.25 % (2.5 mg/mL) solution 2.5 mg intra-articular ONCE Qty: 1 0RF Lasix 20 mg tablet 20 mg PO DAILY Qty: 7 0RF ibuprofen 800 mg tablet 800 mg PO Q8H PRN (Reason: pain) Qty: 20 0RF Discharge Orders: Discharge ED (Routine); Ordered 02/20/23 Ordered By: Myla Trejo Referrals: Es Torres MD [Primary Care Provider] - Activity Restrictions/Additional Instructions: As we discussed I want you to continue following instructions given to you by your patternmaker plaster/Dr. Beltran at your last visit. Continue to keep wounds/ulcers clean and dry. I am placing you on antibiotics. I would like you to follow-up with the wound care clinic on as scheduled. As we discussed I would like you to return to the emergency department for worsening redness, swelling, red streaking up your leg, fevers, generally feeling poorly/ill, inability to hold down your antibiotics, or any other concerns you may have. Coding Level of Care Code ED Inspection And Testing Supervisor for Zelalem Sumner
[2023-02-20 19:39] LABS: Basophils % 0.3 %; Eosinophils # 0.2 10^3/uL (0.0-0.8); Eosinophils % 1.6 %; Hematocrit 38.6 % (37-53); Lymphocytes # 1.4 10^3/uL (0.8-4.8); Lymphocytes % 11.8 %; Mean Corpuscular HGB Conc 32.6 g/dL (30-55); Mean Corpuscular Hemoglobin 27.8 pg (27-33); Mean Platelet Volume 11.1 fL (7.4-10.4); Monocytes # 0.8 10^3/uL (0.2-0.9); Monocytes % 6.3 %; Neutrophils # 9.48 10^3/uL (1.8-7.7); Neutrophils % 79.7 %; Nucleated Red Blood Cells % 0 %; Platelet Count 286 10^3/cmm (157-399); Red Blood Count 4.54 10^6/uL (3.85-5.65); Red Cell Distribution Width 14.8 % (12.1-15.1); White Blood Count 11.88 10^3/uL (3.29-11.43)
[2023-02-20 19:42] LABS: Erythrocyte Sedimentation Rate 71 mm/hr (0-10)
[2023-02-20 20:05] LABS: Alanine Aminotransferase 11 U/L (0-41); Alkaline Phosphatase 90 U/L (40-130); Aspartate Amino Transferase 14 U/L (0-40); Blood Urea Nitrogen 15 mg/dL (6-20); C Reactive Protein 107.6 mg/L (0.0-4.9); Calcium 8.9 mg/dL (8.5-10.5); Carbon Dioxide 26 mmol/L (22-29); Chloride 96 mmol/L (98-107); Globulin 3.8 g/dL (1.3-4.6); Glomerular Filtration Rate 101.1 mL/min (90-130); Glucose 137 mg/dL (65-115); Osmolality Calculated 283 mOsm/kg (285-295); Sodium 135 mmol/L (136-145); Total Bilirubin 0.5 mg/dL (0.15-1.2); Total Protein 7.8 g/dL (6.6-8.7)
[2023-02-20] MEDS: piperacillin-tazobactam 3.375 GM in sodium chloride 0.9% (plus) 50 ML IV (20:25)
[2023-02-20] MEDS: potassium chloride ER 20 mEq Tablet 40 MEQ PO (21:03)
[2023-02-20] MEDS: vancomycin 1,000 MG in sodium chloride 0.9% 250 ML 250 MG IV (21:03)
[2023-02-20 21:05] VITALS: PULSE 71; O2SAT 100
== END 2023-02-20 22:33 | disposition home or self-care (01) ==
PROVIDERS: Emergency Provider Physician Assistant; PCP Family Medicine
DX: L97.519 Non-pressure chronic ulcer of other part of right foot with unspecified severity (principal); F17.210 Nicotine dependence, cigarettes, uncomplicated
CPT/HCPCS: 36415; 73630; 80053; 85025; 85651; 86140; 87040; 96365; 96366; 96367; 99284; J2543; J3370; J7050

== ENCOUNTER → 2023-02-25 13:07 | Outpatient (BNVA) | payer OTHER, SELFPAY | PROVIDERS: PCP Family Medicine; Visit Provider Nurse Practitioner Family | DX: I96 Gangrene, not elsewhere classified (principal); L97.514 Non-pressure chronic ulcer of other part of right foot with necrosis of bone; L97.512 Non-pressure chronic ulcer of other part of right foot with fat layer exposed; L97.522 Non-pressure chronic ulcer of other part of left foot with fat layer exposed; G90.09 Other idiopathic peripheral autonomic neuropathy | CPT/HCPCS: 11042; 11044; 11045; 99213; A6210 ==

== ENCOUNTER → 2023-03-04 13:19 | Outpatient (BNVA) | payer OTHER, SELFPAY | PROVIDERS: PCP Family Medicine; Visit Provider Thoracic Surgery (Cardiothoracic Vascular Surgery) | DX: I96 Gangrene, not elsewhere classified (principal); L97.522 Non-pressure chronic ulcer of other part of left foot with fat layer exposed; L97.512 Non-pressure chronic ulcer of other part of right foot with fat layer exposed | CPT/HCPCS: 11042; 97597; A6210 ==

== ENCOUNTER → 2023-03-11 13:00 | Outpatient (BNVA) | payer OTHER, SELFPAY | PROVIDERS: PCP Family Medicine; Visit Provider Nurse Practitioner Family | DX: I96 Gangrene, not elsewhere classified (principal); L97.516 Non-pressure chronic ulcer of other part of right foot with bone involvement without evidence of necrosis; L97.512 Non-pressure chronic ulcer of other part of right foot with fat layer exposed; L97.522 Non-pressure chronic ulcer of other part of left foot with fat layer exposed; Z09 Encounter for follow-up examination after completed treatment for conditions other than malignant neoplasm | CPT/HCPCS: 11044; 97597; 99212 ==

== ENCOUNTER → 2023-03-18 13:26 | Outpatient (BNVA) | payer OTHER, SELFPAY | PROVIDERS: PCP Family Medicine; Visit Provider Nurse Practitioner Family | DX: I96 Gangrene, not elsewhere classified (principal); L97.524 Non-pressure chronic ulcer of other part of left foot with necrosis of bone; L97.512 Non-pressure chronic ulcer of other part of right foot with fat layer exposed; L97.522 Non-pressure chronic ulcer of other part of left foot with fat layer exposed; G62.9 Polyneuropathy, unspecified | CPT/HCPCS: 11042; 11044; 11045 ==

== ENCOUNTER 2023-03-19 11:53 | Outpatient (CLI) | payer OTHER, SELFPAY ==
--- NOTE | 2023-03-19 12:00 | USCV_ITS ---
Tristen Gunter Age: 52 Gender: M : 1970 Exam Date: 03/19/2023 12:26 Ordering Phys: Madelin Du NP Technologist: LETY Exam Location: [facility] [place] Indication: HISTORY: PROCEDURES: FINDINGS: The veins were found to be easily compressible with spontaneous blood flow. Non pulsatile flow pattern. No significant refluxes in the deep veins No significant refluxes in the superficial veins CONCLUSIONS No evidence of DVT in the above-mentioned identifiable veins. No significant venous reflux either in the superficial or in the deep veins The veins are found to be of relatively of large caliber bilaterally Dr Batool Meier MD [facility] (Electronically Signed) Final Date: 19 March 2023 16:08 S
== END 2023-03-19 11:54 | disposition home or self-care (01) ==
LOC: RAD 11:54
PROVIDERS: PCP Family Medicine; Visit Provider Nurse Practitioner Family
DX: L98.499 Non-pressure chronic ulcer of skin of other sites with unspecified severity (principal); R60.0 Localized edema
CPT/HCPCS: 93970

== ENCOUNTER → 2023-03-25 13:05 | Outpatient (BNVA) | payer OTHER, SELFPAY | PROVIDERS: PCP Family Medicine; Visit Provider Nurse Practitioner Family | DX: I96 Gangrene, not elsewhere classified (principal); L97.512 Non-pressure chronic ulcer of other part of right foot with fat layer exposed; L97.522 Non-pressure chronic ulcer of other part of left foot with fat layer exposed; G62.9 Polyneuropathy, unspecified; L97.524 Non-pressure chronic ulcer of other part of left foot with necrosis of bone; L98.499 Non-pressure chronic ulcer of skin of other sites with unspecified severity | CPT/HCPCS: 11042; 97597 ==

== ENCOUNTER → 2023-04-01 12:58 | Outpatient (BNVA) | payer OTHER, SELFPAY | PROVIDERS: PCP Family Medicine; Visit Provider Nurse Practitioner Family | DX: I96 Gangrene, not elsewhere classified (principal); L97.526 Non-pressure chronic ulcer of other part of left foot with bone involvement without evidence of necrosis; L97.522 Non-pressure chronic ulcer of other part of left foot with fat layer exposed; L97.521 Non-pressure chronic ulcer of other part of left foot limited to breakdown of skin; L97.512 Non-pressure chronic ulcer of other part of right foot with fat layer exposed; L97.511 Non-pressure chronic ulcer of other part of right foot limited to breakdown of skin | CPT/HCPCS: 11042; 11044 ==

== ENCOUNTER → 2023-04-08 13:00 | Outpatient (BNVA) | payer OTHER, SELFPAY | PROVIDERS: PCP Family Medicine; Visit Provider Nurse Practitioner Family | DX: I96 Gangrene, not elsewhere classified (principal); L97.522 Non-pressure chronic ulcer of other part of left foot with fat layer exposed; L97.512 Non-pressure chronic ulcer of other part of right foot with fat layer exposed; L97.523 Non-pressure chronic ulcer of other part of left foot with necrosis of muscle | CPT/HCPCS: 11042; 11043 ==

== ENCOUNTER → 2023-04-15 11:13 | Outpatient (BNVA) | payer OTHER, SELFPAY | PROVIDERS: PCP Family Medicine; Visit Provider Nurse Practitioner Family | DX: I96 Gangrene, not elsewhere classified (principal); L97.512 Non-pressure chronic ulcer of other part of right foot with fat layer exposed; L97.522 Non-pressure chronic ulcer of other part of left foot with fat layer exposed; L97.523 Non-pressure chronic ulcer of other part of left foot with necrosis of muscle | CPT/HCPCS: 11042; 11044 ==

== ENCOUNTER → 2023-04-22 12:59 | Outpatient (BNVA) | payer OTHER, SELFPAY | PROVIDERS: PCP Family Medicine; Visit Provider Thoracic Surgery (Cardiothoracic Vascular Surgery) | DX: I96 Gangrene, not elsewhere classified (principal); L97.512 Non-pressure chronic ulcer of other part of right foot with fat layer exposed; L97.522 Non-pressure chronic ulcer of other part of left foot with fat layer exposed; Z09 Encounter for follow-up examination after completed treatment for conditions other than malignant neoplasm | CPT/HCPCS: 97597 ==

== ENCOUNTER → 2023-05-06 13:05 | Outpatient (BNVA) | payer OTHER, SELFPAY | PROVIDERS: PCP Family Medicine; Visit Provider Thoracic Surgery (Cardiothoracic Vascular Surgery) | DX: I96 Gangrene, not elsewhere classified (principal); L97.512 Non-pressure chronic ulcer of other part of right foot with fat layer exposed; L97.522 Non-pressure chronic ulcer of other part of left foot with fat layer exposed | CPT/HCPCS: 97597 ==

== ENCOUNTER → 2023-05-13 13:04 | Outpatient (BNVA) | payer OTHER, SELFPAY | PROVIDERS: PCP Family Medicine; Visit Provider Thoracic Surgery (Cardiothoracic Vascular Surgery) | DX: I96 Gangrene, not elsewhere classified (principal); L97.521 Non-pressure chronic ulcer of other part of left foot limited to breakdown of skin; L97.511 Non-pressure chronic ulcer of other part of right foot limited to breakdown of skin; Z09 Encounter for follow-up examination after completed treatment for conditions other than malignant neoplasm | CPT/HCPCS: 11042; 97597 ==

== ENCOUNTER → 2023-05-20 14:48 | Outpatient (BNVA) | payer OTHER, SELFPAY | PROVIDERS: PCP Family Medicine; Visit Provider Thoracic Surgery (Cardiothoracic Vascular Surgery) | DX: I96 Gangrene, not elsewhere classified (principal); L97.521 Non-pressure chronic ulcer of other part of left foot limited to breakdown of skin; L97.511 Non-pressure chronic ulcer of other part of right foot limited to breakdown of skin; G62.9 Polyneuropathy, unspecified | CPT/HCPCS: 87070; 87075; 87077; 87186; 87205; 97597; A6197 ==

== ENCOUNTER → 2023-05-27 15:01 | Outpatient (BNVA) | payer OTHER, SELFPAY | PROVIDERS: PCP Family Medicine; Visit Provider Thoracic Surgery (Cardiothoracic Vascular Surgery) | DX: L97.522 Non-pressure chronic ulcer of other part of left foot with fat layer exposed (principal); L97.521 Non-pressure chronic ulcer of other part of left foot limited to breakdown of skin; G62.9 Polyneuropathy, unspecified; Z09 Encounter for follow-up examination after completed treatment for conditions other than malignant neoplasm | CPT/HCPCS: 11042; 97597; A6197 ==

== ENCOUNTER → 2023-06-03 15:05 | Outpatient (BNVA) | payer OTHER, SELFPAY | PROVIDERS: PCP Family Medicine; Visit Provider Thoracic Surgery (Cardiothoracic Vascular Surgery) | DX: I96 Gangrene, not elsewhere classified (principal); L97.521 Non-pressure chronic ulcer of other part of left foot limited to breakdown of skin; L97.511 Non-pressure chronic ulcer of other part of right foot limited to breakdown of skin; Z09 Encounter for follow-up examination after completed treatment for conditions other than malignant neoplasm | CPT/HCPCS: 97597; A6197 ==

== ENCOUNTER → 2023-06-10 14:07 | Outpatient (BNVA) | payer OTHER, SELFPAY | PROVIDERS: PCP Family Medicine; Visit Provider Thoracic Surgery (Cardiothoracic Vascular Surgery) | DX: I96 Gangrene, not elsewhere classified (principal); L97.521 Non-pressure chronic ulcer of other part of left foot limited to breakdown of skin; L97.511 Non-pressure chronic ulcer of other part of right foot limited to breakdown of skin; Z09 Encounter for follow-up examination after completed treatment for conditions other than malignant neoplasm; G62.9 Polyneuropathy, unspecified | CPT/HCPCS: 97597; A6197 ==

== ENCOUNTER 2023-06-23 16:57 | Outpatient (CLI) | payer OTHER, SELFPAY ==
--- NOTE | 2023-06-23 17:20 | XRR_ITS ---
PROCEDURE INFORMATION: Exam: XR Left Foot Exam date and time: 06/23/2023 5:23 PM Age: 52 years old Clinical indication: Other: Diabetic ulcer; Additional info: L98.499 - non-pressure chronic ulcer of skin of other sit. . . , Special attention to lt 2nd toe. TECHNIQUE: Imaging protocol: Radiologic exam of the left foot. Views: 3 or more views. COMPARISON: No relevant prior studies available. FINDINGS: Bones/joints: There are erosive changes on either side of the 2nd and 3rd toe proximal interphalangeal joints concerning for septic arthritis/osteomyelitis. Correlation with MRI is recommended. There is associated periostitis of the proximal phalanges of the 2nd and 3rd toes. Soft tissues: Soft tissue edema/ulceration of the 2nd and 3rd toes is suspected. XR/XR foot LT min 3V* [id number] IMPRESSION: 1. Erosive changes on either side of the 2nd and 3rd toe proximal interphalangeal joints concerning for septic arthritis/osteomyelitis. Correlation with MRI is recommended.
== END 2023-06-23 16:58 | disposition home or self-care (01) ==
LOC: RAD 16:58
PROVIDERS: PCP Family Medicine; Visit Provider Thoracic Surgery (Cardiothoracic Vascular Surgery)
DX: L98.499 Non-pressure chronic ulcer of skin of other sites with unspecified severity (principal); G62.9 Polyneuropathy, unspecified
CPT/HCPCS: 73630

== ENCOUNTER 2023-06-29 07:47 | Outpatient (CLI) | payer OTHER, SELFPAY ==
--- NOTE | 2023-06-29 08:00 | MR_ITS ---
WS: [id number] MRI LEFT FOOT WITHOUT CONTRAST. COMPARISON: Radiograph 06/23/2023 Multiplanar, multisequence imaging is performed without contrast. Unable to achieve IV access for con trast evaluation. Extensive amount of edema and increased T2 signal involving the proximal and and middle phalanges of the second toe. On the T1 sequences there is low signal in the areas of edema. The abnormal signal ex tends through the PIP joint. The distal phalanx is probably spared. The abnormal signal within the mi ddle phalanx does extend to the DIP joint. There is a large amount of soft tissue edema surrounding t he second toe. Suspect there may be a pathological fracture in the diaphysis of the proximal phalanx of the second toe. There is additional abnormal signal involving the third proximal and middle phalanges. There is marke d thinning of the diaphysis proximal phalanx of the third toe. Additional abnormal signal involving p ortions fourth toe, proximal and middle phalanges. Diffuse soft tissue edema surrounding the midfoot in the toes. Erosions involving the heads of the proximal phalanges of the third and fourth toes. Add itional loss of the normal cortex of the proximal phalanx second toe. Very subtle area of decreased signal on the T1 sequence in the fifth toe may be early developing colin a. IMPRESSION: 1. Unable to achieve IV access for postcontrast evaluation. 2. Abnormal signal involving portions of the second, third, fourth and possibly the fifth toe. Findi ngs are highly suspicious for osteomyelitis. Unfortunately we were unable to give IV contrast. Findin gs are highly suspicious for osteomyelitis with bone destruction and involvement of the PIP joints. 3. Large amount of soft tissue edema and cellulitis surrounding the midfoot and the toes. Most signi ficant involvement does appear to be the second and third toes.
== END 2023-06-29 07:48 | disposition home or self-care (01) ==
PROVIDERS: PCP Family Medicine; Visit Provider Thoracic Surgery (Cardiothoracic Vascular Surgery)
DX: L98.499 Non-pressure chronic ulcer of skin of other sites with unspecified severity (principal); L03.116 Cellulitis of left lower limb
CPT/HCPCS: 73718; 87070; 87075; 87077; 87176; 87186; 87205; 97597

== ENCOUNTER → 2023-07-01 14:59 | Outpatient (BNVA) | payer OTHER, SELFPAY | PROVIDERS: PCP Family Medicine; Visit Provider Thoracic Surgery (Cardiothoracic Vascular Surgery) | DX: I96 Gangrene, not elsewhere classified (principal); L97.521 Non-pressure chronic ulcer of other part of left foot limited to breakdown of skin; L97.511 Non-pressure chronic ulcer of other part of right foot limited to breakdown of skin | CPT/HCPCS: 97597 ==

== ENCOUNTER → 2023-07-08 15:09 | Outpatient (BNVA) | payer OTHER, SELFPAY | PROVIDERS: PCP Family Medicine; Visit Provider Thoracic Surgery (Cardiothoracic Vascular Surgery) | DX: I96 Gangrene, not elsewhere classified (principal); L97.521 Non-pressure chronic ulcer of other part of left foot limited to breakdown of skin; L97.511 Non-pressure chronic ulcer of other part of right foot limited to breakdown of skin; G60.9 Hereditary and idiopathic neuropathy, unspecified | CPT/HCPCS: 97597 ==

== ENCOUNTER → 2023-07-15 14:06 | Outpatient (BNVA) | payer OTHER, SELFPAY | PROVIDERS: PCP Family Medicine; Visit Provider Thoracic Surgery (Cardiothoracic Vascular Surgery) | DX: L97.521 Non-pressure chronic ulcer of other part of left foot limited to breakdown of skin (principal); L97.511 Non-pressure chronic ulcer of other part of right foot limited to breakdown of skin; G90.09 Other idiopathic peripheral autonomic neuropathy | CPT/HCPCS: 97597; A6197 ==

== ENCOUNTER → 2023-07-22 15:15 | Outpatient (BNVA) | payer OTHER, SELFPAY | PROVIDERS: PCP Family Medicine; Visit Provider Thoracic Surgery (Cardiothoracic Vascular Surgery) | DX: I96 Gangrene, not elsewhere classified (principal); L97.521 Non-pressure chronic ulcer of other part of left foot limited to breakdown of skin; L97.511 Non-pressure chronic ulcer of other part of right foot limited to breakdown of skin; G90.09 Other idiopathic peripheral autonomic neuropathy | CPT/HCPCS: 97597 ==

== ENCOUNTER → 2023-07-29 15:29 | Outpatient (BNVA) | payer OTHER, SELFPAY | PROVIDERS: PCP Family Medicine; Visit Provider Thoracic Surgery (Cardiothoracic Vascular Surgery) | DX: Z09 Encounter for follow-up examination after completed treatment for conditions other than malignant neoplasm (principal); Z87.2 Personal history of diseases of the skin and subcutaneous tissue | CPT/HCPCS: 99212 ==

== ENCOUNTER 2023-07-30 16:25 | Outpatient (CLI) | payer OTHER, SELFPAY ==
[2023-07-30 17:32] LABS: Basophils % 0.4 %; Eosinophils # 0.2 10^3/uL (0.0-0.8); Eosinophils % 3.4 %; Hematocrit 45.1 % (37-53); Lymphocytes # 1.8 10^3/uL (0.8-4.8); Mean Corpuscular HGB Conc 32.4 g/dL (30-55); Mean Corpuscular Hemoglobin 29.7 pg (27-33); Mean Corpuscular Volume 91.9 fl (82-101); Mean Platelet Volume 11.8 fL (7.4-10.4); Monocytes # 0.4 10^3/uL (0.2-0.9); Neutrophils # 4.53 10^3/uL (1.8-7.7); Neutrophils % 64.9 %; Nucleated Red Blood Cells % 0 %; Platelet Count 218 10^3/cmm (157-399); Red Blood Count 4.91 10^6/uL (3.85-5.65); Red Cell Distribution Width 15.2 % (12.1-15.1); White Blood Count 6.99 10^3/uL (3.29-11.43)
[2023-07-30 17:43] LABS: Erythrocyte Sedimentation Rate 34 mm/hr (0-10)
[2023-07-30 18:04] LABS: C Reactive Protein 20.2 mg/L (0.0-4.9)
== END 2023-07-30 16:26 | disposition home or self-care (01) ==
LOC: LAB 16:27
PROVIDERS: PCP Family Medicine; Visit Provider Thoracic Surgery (Cardiothoracic Vascular Surgery)
DX: M86.9 Osteomyelitis, unspecified (principal); Z79.899 Other long term (current) drug therapy
CPT/HCPCS: 36415; 85025; 85651; 86140

== ENCOUNTER → 2023-08-12 10:39 | Outpatient (BNVA) | payer OTHER, SELFPAY | PROVIDERS: PCP Family Medicine; Visit Provider Thoracic Surgery (Cardiothoracic Vascular Surgery) | DX: Z09 Encounter for follow-up examination after completed treatment for conditions other than malignant neoplasm (principal); Z87.2 Personal history of diseases of the skin and subcutaneous tissue | CPT/HCPCS: 99212 ==

== ENCOUNTER 2023-11-01 20:16 | Emergency (ER) | payer OTHER, SELFPAY ==
[2023-11-01] VITALS (7 sets, daily range): BP systolic 172–187; BP diastolic 89–113; PULSE 69–87; RESP 16–18; TEMP 36.9; O2SAT 95–97; BMI 39.5
--- NOTE | 2023-11-01 21:01 | CTR_ITS ---
PROCEDURE INFORMATION: Exam: CT Maxillofacial With Contrast Exam date and time: 11/01/2023 9:55 PM Age: 53 years old Clinical indication: Mass, lump, or swelling; Mouth; Jaw pain; Additional info: Right face swelling TECHNIQUE: Imaging protocol: Computed tomography of the face with contrast. Radiation optimization: All CT scans at this facility use at least one of these dose optimization techniques: automated exposure control; mA and/or kV adjustment per patient size (includes targeted exams where dose is matched to clinical indication); or iterative reconstruction. Contrast material: OMNI 350; Contrast volume: 100 ml; Contrast route: INTRAVENOUS (IV); COMPARISON: No relevant prior studies available. RADIATION DOSE METRICS: Total DLP (mGy-cm): 719.48 FINDINGS: Orbital cavities: Orbits are normal. Globes are unremarkable. Paranasal sinuses: Small mucous retention cysts in the maxillary sinuses bilaterally. Layering mucus also seen within the right sphenoid sinus. Teeth: Several bilateral maxillary molars are absent. Dental caries are also noted in multiple teeth. A periapical lucency is seen along a right mandibular incisor with disruption of the outer table of the mandible at this level (for example on series 3, image 26 and series 6, image 69). Bones: Multilevel degenerative changes of the visualized cervical spine. Soft tissues: Ill-defined subcutaneous fat stranding overlying the right mandible with mild distortion of the fat planes and subjacent musculature, such as the zygomaticus major and buccinator muscles. No loculated fluid collection to suggest abscess formation. CT/CT facial bones w con [id number] IMPRESSION: Findings compatible with an odontogenic infection with periapical lucency along a right mandibular incisor resulting in ill-defined fat stranding extending into the adjacent subcutaneous soft tissues of the right face. No definite soft tissue abscess formation at this time. Disruption of the outer table of the mandible at the level of the periapical lucency.
--- NOTE | 2023-11-01 21:05 | ED_ITS ---
HPI - Dental/Oral General: Chief complaint: Dental/Oral Stated complaint: Tooth Ache Time Seen by Provider: 11/01/23 20:23 Source: patient Mode of arrival: ambulatory Limitations: no limitations History of Present Illness: Patient is a 53-year-old male presenting to the emergency department planing of right lower dental pain and swelling onset last night. No history of dental abscess, states that he was told he needs a root canal and he believes that he is having issues with the tooth that has been evaluated in the past. States he has been taking all the Bactrim he has had at home, started this today. The pain has steadily worsened and swelling has gotten severe, stating however it is now feeling numb more than painful. Breathing normal, states he has no issues with swallowing. No fever, nausea or vomiting, or other symptoms at this time. MD Complaint: tooth pain Onset (ago): day(s) Duration: constant Severity: severe Relieving factors: nothing Associated symptoms: Denies ear or mastoid pain or fever(s) Treatment prior to arrival: other (Old abx) Related Data Home Medications Medication Instructions Recorded Confirmed amlodipine 5 mg tablet 5 mg PO DAILY 04/24/21 02/08/23 buprenorphine 2 mg-naloxone 0.5 mg 2 tab sublingual BID 04/24/21 02/08/23 sublingual tablet losartan 50 mg tablet 150 mg PO DAILY 04/24/21 02/08/23 metoprolol succinate 100 mg 150 mg PO DAILY 04/24/21 02/08/23 tablet,extended release 24 hr omega-3 fatty acids 1,000 mg 1,000 mg PO BID 04/24/21 02/08/23 capsule (Fish Oil Concentrate) hydrochlorothiazide 25 mg tablet 25 mg PO DAILY 07/10/21 02/08/23 pregabalin 75 mg capsule 75 mg PO BID 07/10/21 02/08/23 Previous Rx's Medication Instructions Recorded ibuprofen 800 mg tablet 800 mg PO Q8H PRN pain #20 tabs 03/12/22 furosemide 20 mg tablet (Lasix) 20 mg PO DAILY #7 tabs 08/17/22 cephalexin 500 mg capsule 500 mg PO BID #14 caps 08/25/22 Extra depth orthopedic shoes #1 ea 02/08/23 JUZOS wraps bilaterally #1 ea 02/08/23 levofloxacin 500 mg tablet 500 mg PO DAILY #10 tabs 03/11/23 sulfamethoxazole 800 1 tab PO BID #20 tabs 05/20/23 mg-trimethoprim 160 mg tablet (Bactrim DS) levofloxacin 500 mg tablet 500 mg PO DAILY #14 tabs 07/15/23 sulfamethoxazole 800 1 tab PO BID #28 tabs 07/15/23 mg-trimethoprim 160 mg tablet (Bactrim DS) levofloxacin 500 mg tablet 500 mg PO DAILY #21 tabs 07/22/23 sulfamethoxazole 800 1 tab PO BID #42 tabs 07/22/23 mg-trimethoprim 160 mg tablet (Bactrim DS) amoxicillin 875 mg-potassium 1 tab PO BID 10 days #20 tabs 11/01/23 clavulanate 125 mg tablet prednisone 20 mg tablet 60 mg (3 x 20 mg) PO ONCE 5 days 11/01/23 #15 tabs Allergies Allergy/AdvReac Type Severity Reaction Status Date / Time codeine Allergy Intermediate ALGY-Hives Verified 02/08/23 11:21 Review of Systems General: Reports: 10 or more systems reviewed and unremarkable except in HPI and below Const: Denies: fever(s), chills or fatigue Eyes: Denies: change in vision ENMT: Reports: dental pain and sinus pain; Denies: throat pain, ear or mastoid pain or nasal discharge Card: Denies: chest pain, palpitations, swelling of feet/ankles or lightheadedness Resp: Denies: dyspnea, productive cough or wheezing GI: Denies: abdominal pain, nausea, vomiting, diarrhea or constipation : Denies: flank pain, difficulty urinating, dysuria or urinary frequency Musc: Denies: neck pain, back pain or joint pain Skin/Breast: Denies: rash Neuro: Denies: headache(s), numbness in extremities or weakness in extremities PFSH ED PFSH: Medical History Bilateral foot-drop Venous insufficiency Family History Mother Hypertension Denies family history of Diabetes CAD (coronary artery disease) Cancer Stroke Social History Smoking and tobacco/nicotine status: current every day tobacco/nicotine user cigarettes Packs smoked per day: 1 Alcohol intake: current Alcohol intake frequency: holidays/special occasions only Alcohol type: beer Substance/Drug Use: former Date of last use: QUIT 2013 Physical Exam Const: COMMON NORMALS: no acute distress and no limitations GENERAL APPEARANCE: cooperative, comfortable and well developed NUTRITIONAL APPEARANCE: obese morbidly obese ORIENTATION/CONSCIOUSNESS: Yes awake HENMT: COMMON NORMALS: normocephalic, atraumatic and hearing grossly normal bilaterally HEAD & SCALP: normocephalic and atraumatic FACE & SINUS: Facial tenderness on exam of face and sinuses on the right mandible and other (Swelling of right mandibular region) TEETH & GINGIVA: Yes abnormal tooth and associated gingiva lower right tender and with associated gingival edema and Yes fair dentition Eye: COMMON NORMALS: Equal, round and reactive pupils present, EOMs intact bilaterally and conjunctivae normal CONJUNCTIVA: Yes conjunctivae normal PUPIL: Yes Equal, round and reactive pupils present Neck/C-Spine: COMMON NORMALS: full ROM, supple and no JVD Resp: COMMON NORMALS: normal respiratory effort, No retractions, No use of accessory muscles and clear to auscultation bilaterally AUSCULTATION: clear to auscultation bilaterally Cardio: COMMON NORMALS: no JVD, regular rate, regular rhythm, No clicks present (Cardio), No murmurs present (Cardio) and No rub (Cardio) RATE: regular rate RHYTHM: regular rhythm Extremity: COMMON NORMALS: normal to inspection, full ROM and capillary refill normal Psych: COMMON NORMALS: mental status grossly normal and Normal thought process present THOUGHT PROCESS: Normal thought process present Skin: COMMON NORMALS: no rashes or lesions noted GENERAL SKIN EXAM: no rashes or lesions noted Course Vital Signs: Vital signs: Vital Signs Temperature 98.5 F 11/01/23 20:22 Pulse Rate 72 11/01/23 22:30 Respiratory Rate 16 11/01/23 20:22 Blood Pressure 172/99 11/01/23 22:30 Pulse Oximetry 97 11/01/23 22:30 Oxygen Delivery Me thod Room Air 11/01/23 22:30 [facility] - Dental/Oral Medical Decision Making Patient presented with right-sided facial swelling and pain beginning today. On initial presentation he did appear to have quite a bit of swelling to his right lower jaw, CT was ordered to rule out an abscess. This did not show any abscess, however did comment on what appeared to be a dental infection, of which we will treat with Augmentin and steroids. He is given dose of Hume here. He has a dental appointment scheduled for Wednesday. He will keep this as scheduled. Return precautions given. Lab Data Radiology Impressions Face CT 11/01/23 21:01 IMPRESSION: Findings compatible with an odontogenic infection with periapical lucency along a right mandibular incisor resulting in ill-defined fat stranding extending into the adjacent subcutaneous soft tissues of the right face. No definite soft tissue abscess formation at this time. Disruption of the outer table of the mandible at the level of the periapical lucency. All radiology interpretation(s) finalized by discharge Discharge Plan Discharge Patient Disposition: Home Clinical Impression: Dental abscess Condition: Stable Prescriptions: New prednisone 20 mg tablet 60 mg PO ONCE 5 Days Qty: 15 0RF amoxicillin-pot clavulanate 875-125 mg tablet 1 tab PO BID 10 Days Qty: 20 0RF No Action losartan 50 mg tablet 150 mg PO DAILY amlodipine 5 mg tablet 5 mg PO DAILY buprenorphine-naloxone 2-0.5 mg tablet, sublingual 2 tab sublingual BID omega-3 fatty acids [Fish Oil Concentrate] 1,000 mg capsule 1,000 mg PO BID metoprolol succinate 100 mg tablet extended release 24 hr 150 mg PO DAILY cephalexin 500 mg capsule 500 mg PO BID Qty: 14 0RF (DME) Extra depth orthopedic shoes See Rx Instructions .Route .MEDSUPPLY Qty: 1 0RF Rx Instructions: As directed (DME) JUZOS wraps bilaterally See Rx Instructions .Route .MEDSUPPLY Qty: 1 0RF Rx Instructions: As directed levofloxacin 500 mg tablet 500 mg PO DAILY Qty: 10 0RF pregabalin 75 mg capsule 75 mg PO BID hydrochlorothiazide 25 mg tablet 25 mg PO DAILY methylprednisolone acetate [Depo-Medrol] 40 mg/mL suspension 40 mg intra-articular ONCE Qty: 1 0RF bupivacaine (PF) 0.25 % (2.5 mg/mL) solution 5 ml intra-articular ONCE Qty: 1 0RF methylprednisolone acetate [Depo-Medrol] 40 mg/mL suspension 40 mg Infiltration ONCE Qty: 1 0RF bupivacaine (PF) 0.25 % (2.5 mg/mL) solution 2.5 mg intra-articular ONCE Qty: 1 0RF sulfamethoxazole-trimethoprim [Bactrim DS] 800-160 mg tablet 1 tab PO BID Qty: 20 0RF sulfamethoxazole-trimethoprim [Bactrim DS] 800-160 mg tablet 1 tab PO BID Qty: 28 0RF levofloxacin 500 mg tablet 500 mg PO DAILY Qty: 14 0RF sulfamethoxazole-trimethoprim [Bactrim DS] 800-160 mg tablet 1 tab PO BID Qty: 42 0RF levofloxacin 500 mg tablet 500 mg PO DAILY Qty: 21 0RF Lasix 20 mg tablet 20 mg PO DAILY Qty: 7 0RF ibuprofen 800 mg tablet 800 mg PO Q8H PRN (Reason: pain) Qty: 20 0RF Discharge Orders: Discharge ED (Routine); Ordered 11/01/23 Ordered By: Augie Rivera Referrals: Es Torres MD [Primary Care Provider] - Discharge Diet: Usual diet Discharge Activity: Increase activity as tolerated Patient Instructions: Dental Abscess (ED) Activity Restrictions/Additional Instructions: Prednisone. Augmentin. Follow-up with dentist later this week as discussed. Return with any new or worsening symptoms. Coding Level of Care Code ED Health Unit Clerk for Zelalem Sumner
[2023-11-01] MEDS: HYDROcodone-acetaminophen 7.5-325 mg Tablet 1 TAB PO (21:06)
[2023-11-01] MEDS: dexamethasone 10 mg/mL INJ IVP (21:39)
[2023-11-01] MEDS: iohexol 350 mg/mL 500 mL Btl (per mL) IV (22:04)
[2023-11-01] MEDS: amoxicillin-clav 875-125 mg Tablet 1 TAB PO (23:41)
== END 2023-11-01 23:43 | disposition home or self-care (01) ==
PROVIDERS: Emergency Provider Physician Assistant; PCP Family Medicine
DX: K04.7 Periapical abscess without sinus (principal); F17.210 Nicotine dependence, cigarettes, uncomplicated
CPT/HCPCS: 70487; 96374; 99285; J1100; Q9967

== ENCOUNTER → 2024-05-09 13:37 | Outpatient (BNVA) | payer OTHER, SELFPAY | PROVIDERS: PCP Family Medicine; Visit Provider Podiatrist Foot & Ankle Surgery | DX: M79.672 Pain in left foot (principal); E11.621 Type 2 diabetes mellitus with foot ulcer; L97.522 Non-pressure chronic ulcer of other part of left foot with fat layer exposed; M21.371 Foot drop, right foot; M21.372 Foot drop, left foot; I89.0 Lymphedema, not elsewhere classified; M21.41 Flat foot [pes planus] (acquired), right foot; M21.42 Flat foot [pes planus] (acquired), left foot; E11.42 Type 2 diabetes mellitus with diabetic polyneuropathy | CPT/HCPCS: 73630 ==

== ENCOUNTER 2024-05-09 14:20 | Outpatient (CLI) | payer OTHER, SELFPAY | END 2024-05-09 14:21 | disposition home or self-care (01) | LOC: SPT 14:20 | PROVIDERS: PCP Family Medicine; Visit Provider Podiatrist Foot & Ankle Surgery | DX: E11.621 Type 2 diabetes mellitus with foot ulcer (principal); L97.522 Non-pressure chronic ulcer of other part of left foot with fat layer exposed; M21.371 Foot drop, right foot; M21.372 Foot drop, left foot; I89.0 Lymphedema, not elsewhere classified; M21.41 Flat foot [pes planus] (acquired), right foot; M21.42 Flat foot [pes planus] (acquired), left foot; E11.42 Type 2 diabetes mellitus with diabetic polyneuropathy | CPT/HCPCS: 11042; 97760; 99213; L4361 ==

== ENCOUNTER → 2024-05-17 14:32 | Outpatient (BNVA) | payer OTHER, SELFPAY | PROVIDERS: PCP Family Medicine; Visit Provider Podiatrist Foot & Ankle Surgery | DX: E11.621 Type 2 diabetes mellitus with foot ulcer (principal); L97.522 Non-pressure chronic ulcer of other part of left foot with fat layer exposed; M21.371 Foot drop, right foot; M21.372 Foot drop, left foot; I89.0 Lymphedema, not elsewhere classified; M21.41 Flat foot [pes planus] (acquired), right foot; M21.42 Flat foot [pes planus] (acquired), left foot; E11.42 Type 2 diabetes mellitus with diabetic polyneuropathy | CPT/HCPCS: 99213 ==

== ENCOUNTER → 2024-06-06 12:50 | Outpatient (BNVA) | payer OTHER, SELFPAY | PROVIDERS: PCP Family Medicine; Visit Provider Podiatrist Foot & Ankle Surgery | DX: M21.371 Foot drop, right foot (principal); M21.372 Foot drop, left foot; I89.0 Lymphedema, not elsewhere classified; M21.41 Flat foot [pes planus] (acquired), right foot; M21.42 Flat foot [pes planus] (acquired), left foot; E11.621 Type 2 diabetes mellitus with foot ulcer; L97.522 Non-pressure chronic ulcer of other part of left foot with fat layer exposed; E11.42 Type 2 diabetes mellitus with diabetic polyneuropathy | CPT/HCPCS: 99213 ==

== ENCOUNTER → 2024-07-04 13:07 | Outpatient (BNVA) | payer OTHER, SELFPAY | PROVIDERS: PCP Family Medicine; Visit Provider Podiatrist Foot & Ankle Surgery | DX: M21.371 Foot drop, right foot (principal); M21.372 Foot drop, left foot; I89.0 Lymphedema, not elsewhere classified; M21.41 Flat foot [pes planus] (acquired), right foot; M21.42 Flat foot [pes planus] (acquired), left foot; E11.42 Type 2 diabetes mellitus with diabetic polyneuropathy | CPT/HCPCS: 99213 ==

== ENCOUNTER 2024-07-16 21:17 | Emergency (ER) | payer OTHER, SELFPAY ==
[2024-07-16 21:19] VITALS: BP 147/91; PULSE 68; RESP 18; TEMP 37; O2SAT 97; BMI 39.0
--- NOTE | 2024-07-17 00:33 | W.ED.SKABFB ---
HPI - Skin/Abscess/Foreign Bdy General: Chief complaint: Skin/Abscess/Foreign Body Stated complaint: Blister on toes Time Seen by Provider: 07/17/24 00:07 History of Present Illness: 53-year-old diabetic male states that he noticed blisters on his right foot tonight, over his 2nd, 3rd and 4th toes that were new while washing his feet. He has had chronic vascular stasis, and cellulitis of his bilateral feet. He denies fever, increased pain, etc. He states he has chronic neuropathy in both feet, and does not have feeling in them. No drainage. Related Data Home Medications ?Medication ?Instructions ?Recorded ?Confirmed amlodipine 5 mg tablet 5 mg PO DAILY 04/24/21 07/04/24 buprenorphine 2 mg-naloxone 0.5 mg 2 tab sublingual BID 04/24/21 07/04/24 sublingual tablet losartan 50 mg tablet 150 mg PO DAILY 04/24/21 07/04/24 metoprolol succinate 100 mg 150 mg PO DAILY 04/24/21 07/04/24 tablet,extended release 24 hr omega-3 fatty acids 1,000 mg 1,000 mg PO BID 04/24/21 07/04/24 capsule (Fish Oil Concentrate) hydrochlorothiazide 25 mg tablet 25 mg PO DAILY 07/10/21 07/04/24 pregabalin 75 mg capsule 75 mg PO BID 07/10/21 07/04/24 Previous Rx's ?Medication ?Instructions ?Recorded ibuprofen 800 mg tablet 800 mg PO Q8H PRN pain #20 tabs 03/12/22 furosemide 20 mg tablet (Lasix) 20 mg PO DAILY #7 tabs 08/17/22 Extra depth orthopedic shoes #1 ea 02/08/23 JUZOS wraps bilaterally #1 ea 02/08/23 cam boot to left #1 ea 05/09/24 3 inch Coban #10 ea 06/06/24 mupirocin 2 % topical ointment 1 applic topical BID 2 weeks #22 06/06/24 grams AFO bilateral #1 ea 07/04/24 Diabetic shoes #1 ea 07/04/24 clindamycin HCl 300 mg capsule 300 mg PO TID 10 days #30 caps 07/17/24 Allergies Allergy/AdvReac Type Severity Reaction Status Date / Time codeine Allergy Intermediate ALGY-Hives Verified 07/04/24 13:09 [facility] ED PFS: Medical History Bilateral foot-drop Venous insufficiency Family History Mother Hypertension Denies family history of Diabetes CAD (coronary artery disease) Cancer Stroke Social History Smoking and tobacco/nicotine status: current every day tobacco/nicotine user cigarettes Packs smoked per day: 1 Alcohol intake: current Alcohol intake frequency: holidays/special occasions only Alcohol type: beer Substance/Drug Use: former Date of last use: QUIT 2013 Physical Exam Const: COMMON NORMALS: no acute distress GENERAL APPEARANCE: cooperative; not ill appearing HENMT: COMMON NORMALS: normocephalic, atraumatic and Normal external nose present HEAD & SCALP: normocephalic and atraumatic FACE & SINUS: normal facial exam and face symmetric NOSE: Normal external nose present Eye: COMMON NORMALS: Equal, round and reactive pupils present and EOMs intact bilaterally PUPIL: Yes Equal, round and reactive pupils present Neck/C-Spine: GENERAL: Yes trachea midline Chest: CHEST: Yes Symmetrical chest wall rise Resp: COMMON NORMALS: normal respiratory effort, No retractions and No use of accessory muscles Cardio: COMMON NORMALS: regular rate and regular rhythm RATE: regular rate RHYTHM: regular rhythm Extremity: NARRATIVE EXTREMITY EXAM: Exam of the right lower extremity reveals a cellulitic foot, there is stasis dermatitis present. There are small blisters present over the dorsum of toes 2 3 and 4 on that side. No drainage. No streaking. Nails are intact. Neuro: DEANNA COMA SCALE: document GCS findings [place] coma scale eye opening: Spontaneous Deanna coma scale verbal response: Orientated [place] coma scale motor response: Obey commands [place] coma scale total score: 15 SENSORY EXAM: Yes extremities (intact) Psych: COMMON NORMALS: speech normal SPEECH: Yes normal speech Course Vital Signs: Vital signs: Vital Signs Temperature 98.6 F 07/16/24 21:19 Pulse Rate 68 07/16/24 21:19 Respiratory Rate 18 07/16/24 21:19 Blood Pressure 147/91 07/16/24 21:19 Pulse Oximetry 97 07/16/24 21:19 Oxygen Delivery Me thod Room Air 07/16/24 21:19 MDM - Skin/Abscess/Foreign Bdy Medicial Decision Making Blisters present. Pulses to the foot are normal. Capillary refill to the toes are normal. There is no drainage. Blisters were unroofed after scrubbing with Betadine and peroxide. Bandaged. He will be placed on clindamycin. He will continue to use mupirocin which she has at home topically. He is to return for worsening symptoms. He will follow-up with podiatry, whom he has seen in the past. No radiology studies performed this visit Discharge Plan Discharge Patient Disposition: Home Clinical Impression: Cellulitis Condition: Stable Prescriptions: New clindamycin HCl 300 mg capsule 300 mg PO TID 10 Days Qty: 30 0RF No Action losartan 50 mg tablet 150 mg PO DAILY amlodipine 5 mg tablet 5 mg PO DAILY buprenorphine-naloxone 2-0.5 mg tablet, sublingual 2 tab sublingual BID omega-3 fatty acids [Fish Oil Concentrate] 1,000 mg capsule 1,000 mg PO BID metoprolol succinate 100 mg tablet extended release 24 hr 150 mg PO DAILY (DME) Extra depth orthopedic shoes See Rx Instructions .Route .MEDSUPPLY Qty: 1 0RF Rx Instructions: As directed (DME) JUZOS wraps bilaterally See Rx Instructions .Route .MEDSUPPLY Qty: 1 0RF Rx Instructions: As directed (DME) cam boot to left See Rx Instructions .Route .MEDSUPPLY Qty: 1 0RF Rx Instructions: As directed mupirocin 2 % ointment 1 applic topical BID 14 Days Qty: 22 0RF (DME) 3 inch Coban See Rx Instructions .Route .MEDSUPPLY Qty: 10 0RF Rx Instructions: As directed (DME) AFO bilateral See Rx Instructions .Route .MEDSUPPLY Qty: 1 0RF Rx Instructions: As directed (DME) Diabetic shoes See Rx Instructions .ROUTE .MEDSUPPLY Qty: 1 0RF Rx Instructions: With 1 pain of custom orthotics pregabalin 75 mg capsule 75 mg PO BID hydrochlorothiazide 25 mg tablet 25 mg PO DAILY methylprednisolone acetate [Depo-Medrol] 40 mg/mL suspension 40 mg intra-articular ONCE Qty: 1 0RF bupivacaine (PF) 0.25 % (2.5 mg/mL) solution 5 ml intra-articular ONCE Qty: 1 0RF methylprednisolone acetate [Depo-Medrol] 40 mg/mL suspension 40 mg Infiltration ONCE Qty: 1 0RF bupivacaine (PF) 0.25 % (2.5 mg/mL) solution 2.5 mg intra-articular ONCE Qty: 1 0RF Lasix 20 mg tablet 20 mg PO DAILY Qty: 7 0RF ibuprofen 800 mg tablet 800 mg PO Q8H PRN (Reason: pain) Qty: 20 0RF Discharge Orders: Discharge ED (Routine); Ordered 07/17/24 Ordered By: Yahir Yanez Referrals: Es Torres MD [Primary Care Provider, Family Practice] Jose Beltran DPM [Physician, Podiatry] - 4-7 days Patient Instructions: Cellulitis (ED), Opioid Safety, Pain Management Activity Restrictions/Additional Instructions: Antibiotics as directed. Clean with soap and running water. Call podiatry tomorrow for a follow-up appointment. Return for any problems. Print Language: Romansh Coding Level of Care Code ED High Pressure Kettle Operator for Zelalem Sumner
[2024-07-17] MEDS: clindamycin 150 mg Capsule 300 MG PO (00:56)
== END 2024-07-17 01:01 | disposition home or self-care (01) ==
PROVIDERS: Emergency Provider Emergency Medicine; PCP Family Medicine
DX: L03.115 Cellulitis of right lower limb (principal); F17.210 Nicotine dependence, cigarettes, uncomplicated
CPT/HCPCS: 99283; J9999

== ENCOUNTER → 2024-07-25 10:59 | Outpatient (BNVA) | payer OTHER, SELFPAY | PROVIDERS: PCP Family Medicine; Visit Provider Podiatrist Foot & Ankle Surgery | DX: E11.621 Type 2 diabetes mellitus with foot ulcer (principal); L97.512 Non-pressure chronic ulcer of other part of right foot with fat layer exposed; E11.42 Type 2 diabetes mellitus with diabetic polyneuropathy; M21.371 Foot drop, right foot; M21.372 Foot drop, left foot; I89.0 Lymphedema, not elsewhere classified; M21.41 Flat foot [pes planus] (acquired), right foot; M21.42 Flat foot [pes planus] (acquired), left foot | CPT/HCPCS: 99213 ==

== ENCOUNTER → 2024-07-31 14:25 | Outpatient (BNVA) | payer OTHER, SELFPAY | PROVIDERS: PCP Family Medicine; Visit Provider Thoracic Surgery (Cardiothoracic Vascular Surgery) | DX: E11.52 Type 2 diabetes mellitus with diabetic peripheral angiopathy with gangrene (principal); E11.621 Type 2 diabetes mellitus with foot ulcer; L97.511 Non-pressure chronic ulcer of other part of right foot limited to breakdown of skin | CPT/HCPCS: 97597; 99213 ==

== ENCOUNTER → 2024-08-08 15:27 | Outpatient (BNVA) | payer OTHER, SELFPAY | PROVIDERS: PCP Family Medicine; Visit Provider Thoracic Surgery (Cardiothoracic Vascular Surgery) | DX: Z09 Encounter for follow-up examination after completed treatment for conditions other than malignant neoplasm (principal); Z87.2 Personal history of diseases of the skin and subcutaneous tissue | CPT/HCPCS: 99212 ==